=== PATIENT | female | born 1945 | race Caucasian/White ===

== ENCOUNTER 2016-07-24 18:43 | Emergency (ER) | payer MEDICARE, MEDICAID ==
[~2016-07-24] VITALS: Ht 149.9 cm; Wt 68.0 kg
[2016-07-24] MEDS ORDERED: MORPHINE SULFATE 4 MG/ML, 1ML ONE (19:16)
[2016-07-24] MEDS ORDERED: ONDANSETRON 2MG/ML, 2ML ONE (19:16)
[2016-07-24 19:29] LABS: BLOOD UREA NITROGEN 25 mg/dL (7-18)
[2016-07-24] MEDS ORDERED: MORPHINE SULFATE 4 MG/ML, 1ML IVPush PRN (19:30)
[2016-07-24] MEDS ORDERED: ONDANSETRON 2MG/ML, 2ML IVPush ONE (19:30)
[2016-07-24] MEDS ORDERED: SODIUM CHLORIDE FLUSH 10ML SYR IVF ONE (19:30)
[2016-07-24] MEDS ORDERED: SODIUM CHLORIDE 0.9% 1,000ML IV ONE (19:30)
[2016-07-24 20:21] LABS: PATH.CAST-FLAG NOT PRESENT; SPERM-FLAG NOT PRESENT; SRC-FLAG NOT PRESENT; XTAL-FLAG NOT PRESENT; YLC-FLAG NOT PRESENT
[2016-07-24 21:58] VITALS: BP 155/59
== END 2016-07-24 22:00 | disposition home or self-care (01) ==
LOC: ED 21:43
DX: M51.16 Intervertebral disc disorders with radiculopathy, lumbar region (principal); I10 Essential (primary) hypertension; E11.9 Type 2 diabetes mellitus without complications; E11.65 Type 2 diabetes mellitus with hyperglycemia
CPT/HCPCS: 36415; 72110; 80048; 81001; 82040; 82962; 85025; 96361; 96374; 96375; 99285; J2405; J7030

== ENCOUNTER 2017-01-01 20:31 | Emergency (ER) | payer MEDICARE, MEDICAID ==
[~2017-01-01] VITALS: Ht 147.3 cm; Wt 68.0 kg
[2017-01-01 20:34] VITALS: BP 160/81
[2017-01-01] MEDS ORDERED: HYDROcodone/APAP 5/325 TABLET PO ONE (21:00)
[2017-01-01] MEDS ORDERED: HYDROcodone/APAP 5/325 TABLET ONE (21:23)
[2017-01-01] MEDS ORDERED: ONDANSETRON ODT 4 MG ONE (21:27)
== END 2017-01-01 22:53 | disposition home or self-care (01) ==
LOC: ED 22:45
DX: M54.42 Lumbago with sciatica, left side (principal); E11.65 Type 2 diabetes mellitus with hyperglycemia; E78.00 Pure hypercholesterolemia, unspecified; I10 Essential (primary) hypertension
CPT/HCPCS: 72110; 99284

== ENCOUNTER 2019-07-29 15:08 | Inpatient (IN) | payer MEDICARE, MEDICAID ==
[~2019-07-29] VITALS: Ht 162.6 cm; Wt 65.7 kg
[2019-07-29] MEDS ORDERED: SODIUM CHLORIDE FLUSH 10ML SYR IVF ONE (16:00)
[2019-07-29] MEDS ORDERED: SODIUM CHLORIDE 0.9% 1,000ML IVBOLUS ONE (16:00)
[2019-07-29] MEDS ORDERED: ACETAMINOPHEN 325 MG TABLET ONE (16:16)
[2019-07-29 16:27] LABS: ALBUMIN 2.7 g/dL (3.4-5.0); ANION GAP 12 mmol/L (5-15); CALCIUM 8.2 mg/dL (8.5-10.1); CHLORIDE 101 mmol/L (98-107)
[2019-07-29] MEDS ORDERED: ACETAMINOPHEN 325 MG TABLET PO ONE (16:30)
[2019-07-29 16:33] LABS: ALANINE AMINOTRANSFERASE 16 U/L (12-78); ALKALINE PHOSPHATASE 49 U/L (45-117); BILIRUBIN,TOTAL 0.7 mg/dL (0.2-1.0); TOTAL PROTEIN 7.1 g/dL (6.4-8.2); TROPONIN I < 0.015 ng/mL (0.000-0.045)
--- NOTE | 2019-07-29 16:42 | NUR ---
URINE SAMPLE WALKED TO LAB
[2019-07-29 16:57] LABS: BASOPHILS % (AUTO) 0 % (0-1); EOSINOPHILS % (AUTO) 0 % (1-7); LYMPHOCYTES # (AUTO) 0.79 x10^3/uL (1-3.4); LYMPHOCYTES % (AUTO) 6 % (22-44); MD NO; MEAN CORPUSCULAR HGB CONC 33.9 g/dL (32.4-35.8); MEAN PLATELET VOLUME 8.1 fL (7.4-10.4); MONOCYTES # (AUTO) 0.04 x10^3/uL (0.2-0.8); MONOCYTES % (AUTO) 0 % (2-9); NEUTROPHILS # (AUTO) 12.34 x10^3/uL (1.8-6.8); NEUTROPHILS % (AUTO) 94 % (42-75); PLATELET COUNT 232 x10^3/uL (130-400); RED BLOOD COUNT 4.38 x10^6/uL (3.82-5.3); RED CELL DISTRIBUTION WIDTH 14.9 % (9.6-15.2)
[2019-07-29 17:05] LABS: MICROSCOPIC AUTO
[2019-07-29] MEDS ORDERED: ONDANSETRON 2MG/ML, 2ML ONE (18:01)
--- NOTE | 2019-07-29 18:08 | NUR ---
PT UNABLE TO WALK, STATES SHE STILL FEELS TOO DIZZY AND NAUSEOUS. NOTIFIED. PROB ADMIT.
[2019-07-29] MEDS ORDERED: CHLO25TA PO (18:39)
[2019-07-29] MEDS ORDERED: METF500T17 PO (18:39)
[2019-07-29] MEDS ORDERED: AMLO-150 PO (18:39)
[2019-07-29] MEDS ORDERED: ATOR40TA PO (18:39)
[2019-07-29] MEDS ORDERED: LISI40TA PO (18:39)
[2019-07-29] MEDS ORDERED: INSU100I13 SQ-INSULIN (18:42)
--- NOTE | 2019-07-29 18:48 | NUR ---
PT TO CT
--- NOTE | 2019-07-29 19:17 | NUR ---
Report received from VIRIDIANA Farrell. This RN to assume care. Awaiting CT results.
[2019-07-29] MEDS ORDERED: OMNIPAQUE 350 MG/ML, 75ML BOTTLE ONE (20:33)
--- NOTE | 2019-07-29 21:17 | NUR ---
Report given to VIRIDIANA Goldberg. Patient to be transferred to room 484-2. Patient is uzbek speaking only and patient's daughter wanted to stay overnight. Called refrigeration houseman and she stated patient's daughter could not stay. She was able, however, to go up with patient for admit process.
[2019-07-29 22:12] VITALS: BP 93/46
[2019-07-29] MEDS: ATORVASTATIN 40 MG TABLET PO SCH (22:37)
[2019-07-29] MEDS: INSULIN LISPRO 100 UNITS/ML, PEN SQ-INSULIN SCH (22:41)
[2019-07-30 02:00] VITALS: BP 109/60
[2019-07-30 06:53] LABS: MEAN CORPUSCULAR HEMOGLOBIN 29.5 pg (27.0-34.8); MEAN CORPUSCULAR HGB CONC 33.3 g/dL (32.4-35.8); MEAN PLATELET VOLUME 7.8 fL (7.4-10.4); PLATELET COUNT 227 x10^3/uL (130-400); RED BLOOD COUNT 4.44 x10^6/uL (3.82-5.3); RED CELL DISTRIBUTION WIDTH 14.8 % (9.6-15.2)
[2019-07-30] MEDS: INSULIN LISPRO 100 UNITS/ML, PEN SQ-INSULIN SCH ×4 (07:00→20:02)
[2019-07-30 07:03] LABS: ANION GAP 8 mmol/L (5-15); CALCIUM 8.3 mg/dL (8.5-10.1); CHLORIDE 107 mmol/L (98-107)
[2019-07-30 07:09] LABS: CREATININE 0.93 mg/dL (0.55-1.02); TROPONIN I < 0.015 ng/mL (0.000-0.045)
[2019-07-30 07:10] VITALS: BP 146/70
[2019-07-30 07:18] LABS: BASOPHILS # (AUTO) 0.03 x10^3/uL (0-0.1); BASOPHILS % (AUTO) 0 % (0-1); EOSINOPHILS % (AUTO) 0 % (1-7); LYMPHOCYTES # (AUTO) 1.01 x10^3/uL (1-3.4); LYMPHOCYTES % (AUTO) 11 % (22-44); MD SCAN; MONOCYTES # (AUTO) 0.32 x10^3/uL (0.2-0.8); MONOCYTES % (AUTO) 3 % (2-9); NEUTROPHILS % (AUTO) 86 % (42-75)
[2019-07-30] MEDS ORDERED: INSULIN GLARGINE 100 UNITS/ML, PEN SQ-INSULIN SCH (09:00)
[2019-07-30] MEDS: AMLODIPINE 5 MG TABLET PO SCH (09:17)
[2019-07-30] MEDS: LISINOPRIL 40 MG TABLET PO SCH (09:17)
[2019-07-30] MEDS: CHLORTHALIDONE 25 MG TABLET PO SCH (09:17)
[2019-07-30] MEDS: AZITHROMYCIN 500 MG TABLET PO SCH (09:57)
[2019-07-30] MEDS: CEFTRIAXONE PMX 1GM/50ML 50 ML IV SCH (09:57)
[2019-07-30] MEDS: ENOXAPARIN 40 MG/0.4 ML SQ SCH (11:24)
[2019-07-30 12:07] LABS: MICROSCOPIC AUTO
[2019-07-30 14:59] VITALS: BP 121/68
[2019-07-30 19:05] VITALS: BP 119/70
[2019-07-30] MEDS: ATORVASTATIN 40 MG TABLET PO SCH (20:02)
[2019-07-30] MEDS: ACETAMINOPHEN 325 MG TABLET PO PRN (20:02)
[2019-07-31] VITALS (9 sets, daily range): BP systolic 73–133; BP diastolic 36–74
[2019-07-31] MEDS ORDERED: SODIUM CHLORIDE 0.9% 1,000ML IVBOLUS ONE (02:30)
[2019-07-31] MEDS: ASPIRIN 81 MG TABLET EC PO SCH (05:41)
[2019-07-31 06:13] LABS: BASOPHILS # (AUTO) 0.03 x10^3/uL (0-0.1); BASOPHILS % (AUTO) 0 % (0-1); EOSINOPHILS # (AUTO) 0.08 x10^3/uL (0-0.4); EOSINOPHILS % (AUTO) 1 % (1-7); LYMPHOCYTES # (AUTO) 1.83 x10^3/uL (1-3.4); LYMPHOCYTES % (AUTO) 22 % (22-44); MD NO; MEAN CORPUSCULAR HEMOGLOBIN 29.1 pg (27.0-34.8); MEAN CORPUSCULAR HGB CONC 32.7 g/dL (32.4-35.8); MEAN PLATELET VOLUME 7.7 fL (7.4-10.4); MONOCYTES # (AUTO) 0.39 x10^3/uL (0.2-0.8); MONOCYTES % (AUTO) 5 % (2-9); NEUTROPHILS # (AUTO) 6.06 x10^3/uL (1.8-6.8); NEUTROPHILS % (AUTO) 72 % (42-75); PLATELET COUNT 228 x10^3/uL (130-400); RED BLOOD COUNT 4.18 x10^6/uL (3.82-5.3); RED CELL DISTRIBUTION WIDTH 15.4 % (9.6-15.2)
[2019-07-31 06:24] LABS: ANION GAP 8 mmol/L (5-15); CALCIUM 7.4 mg/dL (8.5-10.1); CHLORIDE 108 mmol/L (98-107)
[2019-07-31 06:28] LABS: ALANINE AMINOTRANSFERASE 17 U/L (12-78); ALKALINE PHOSPHATASE 50 U/L (45-117); BILIRUBIN,TOTAL 0.7 mg/dL (0.2-1.0); TOTAL PROTEIN 6.2 g/dL (6.4-8.2)
[2019-07-31] MEDS: INSULIN LISPRO 100 UNITS/ML, PEN SQ-INSULIN SCH ×4 (07:00→21:00)
[2019-07-31] MEDS: AZITHROMYCIN 500 MG TABLET PO SCH (08:44)
[2019-07-31] MEDS: AMLODIPINE 5 MG TABLET PO SCH (08:44)
[2019-07-31] MEDS: LISINOPRIL 40 MG TABLET PO SCH (08:45)
[2019-07-31] MEDS: CHLORTHALIDONE 25 MG TABLET PO SCH (08:45)
[2019-07-31] MEDS: CEFTRIAXONE PMX 1GM/50ML 50 ML IV SCH (08:50)
[2019-07-31] MEDS ORDERED: INSULIN GLARGINE 100 UNITS/ML, PEN SQ-INSULIN SCH (09:00)
[2019-07-31] MEDS: ENOXAPARIN 40 MG/0.4 ML SQ SCH (11:19)
[2019-07-31] MEDS: ACETAMINOPHEN 325 MG TABLET PO PRN ×2 (12:23→21:46)
[2019-07-31] MEDS: ONDANSETRON 2MG/ML, 2ML IVPush PRN (14:24)
[2019-07-31] MEDS: ATORVASTATIN 40 MG TABLET PO SCH (21:45)
[2019-08-01] VITALS: BP 114/65
[2019-08-01 00:42] LABS: CLOSTRIDIUM DIFFICILE ANTIGEN NEGATIVE; CLOSTRIDIUM DIFFICILE TOXIN NEGATIVE (Negative)
[2019-08-01] MEDS: ASPIRIN 81 MG TABLET EC PO SCH (05:22)
[2019-08-01 05:35] LABS: BASOPHILS # (AUTO) 0.04 x10^3/uL (0-0.1); BASOPHILS % (AUTO) 0 % (0-1); EOSINOPHILS # (AUTO) 0.17 x10^3/uL (0-0.4); EOSINOPHILS % (AUTO) 2 % (1-7); LYMPHOCYTES % (AUTO) 16 % (22-44); MD NO; MEAN CORPUSCULAR HEMOGLOBIN 29.7 pg (27.0-34.8); MEAN CORPUSCULAR HGB CONC 33.3 g/dL (32.4-35.8); MEAN PLATELET VOLUME 7.2 fL (7.4-10.4); MONOCYTES # (AUTO) 0.41 x10^3/uL (0.2-0.8); MONOCYTES % (AUTO) 4 % (2-9); NEUTROPHILS % (AUTO) 79 % (42-75); PLATELET COUNT 244 x10^3/uL (130-400); RED BLOOD COUNT 4.27 x10^6/uL (3.82-5.3); RED CELL DISTRIBUTION WIDTH 15.1 % (9.6-15.2)
[2019-08-01 05:48] LABS: ALBUMIN 1.9 g/dL (3.4-5.0); ANION GAP 8 mmol/L (5-15); CALCIUM 7.3 mg/dL (8.5-10.1); CHLORIDE 105 mmol/L (98-107)
[2019-08-01 05:54] LABS: ALANINE AMINOTRANSFERASE 16 U/L (12-78); ALKALINE PHOSPHATASE 59 U/L (45-117); BILIRUBIN,TOTAL 0.7 mg/dL (0.2-1.0); CREATININE 1.21 mg/dL (0.55-1.02); TOTAL PROTEIN 6.4 g/dL (6.4-8.2)
[2019-08-01 06:35] VITALS: BP 116/68
[2019-08-01] MEDS ORDERED: MEDROL 4MG DOSEPAK PO SCH (07:30)
[2019-08-01] MEDS ORDERED: INSULIN GLARGINE 100 UNITS/ML, PEN SQ-INSULIN SCH (09:00)
[2019-08-01 09:12] LABS: TROPONIN I < 0.015 ng/mL (0.000-0.045)
[2019-08-01 09:47] LABS: C-REACTIVE PROTEIN, QUANT > 19.00 mg/dL (0.02-0.49)
[2019-08-01] MEDS: ENOXAPARIN 40 MG/0.4 ML SQ SCH (09:54)
[2019-08-01] MEDS: LISINOPRIL 40 MG TABLET PO SCH (09:56)
[2019-08-01] MEDS: LACTOBACILLUS CHEW TABLET PO SCH ×3 (09:57→20:51)
[2019-08-01] MEDS: CHLORTHALIDONE 25 MG TABLET PO SCH (09:57)
[2019-08-01] MEDS ORDERED: ENOXAPARIN 30 MG/0.3 ML SQ SCH (11:30)
[2019-08-01] MEDS: INSULIN LISPRO 100 UNITS/ML, PEN SQ-INSULIN SCH ×3 (11:42→20:54)
[2019-08-01] MEDS: CEFTRIAXONE PMX 1GM/50ML 50 ML IV SCH (11:43)
[2019-08-01 12:38] VITALS: BP 112/69
[2019-08-01] MEDS: ACETAMINOPHEN 325 MG TABLET PO PRN (14:26)
[2019-08-01] MEDS: CARVEDILOL 6.25 MG TABLET PO SCH (17:34)
[2019-08-01 18:36] VITALS: BP 91/59
[2019-08-01] MEDS: ATORVASTATIN 40 MG TABLET PO SCH (20:51)
[2019-08-02] VITALS (7 sets, daily range): BP systolic 90–133; BP diastolic 50–69
[2019-08-02] MEDS: ASPIRIN 81 MG TABLET EC PO SCH (05:10)
[2019-08-02] MEDS: CARVEDILOL 6.25 MG TABLET PO SCH ×2 (05:11→17:46)
[2019-08-02 06:39] LABS: ALANINE AMINOTRANSFERASE 16 U/L (12-78); ALBUMIN 1.9 g/dL (3.4-5.0); ANION GAP 10 mmol/L (5-15); CALCIUM 7.4 mg/dL (8.5-10.1); CHLORIDE 101 mmol/L (98-107); CREATININE 1.24 mg/dL (0.55-1.02)
[2019-08-02 06:44] LABS: ALKALINE PHOSPHATASE 57 U/L (45-117); BILIRUBIN,TOTAL 0.7 mg/dL (0.2-1.0); TOTAL PROTEIN 6.5 g/dL (6.4-8.2)
[2019-08-02] MEDS: INSULIN LISPRO 100 UNITS/ML, PEN SQ-INSULIN SCH ×4 (08:25→20:23)
[2019-08-02] MEDS: LACTOBACILLUS CHEW TABLET PO SCH ×3 (08:54→20:22)
[2019-08-02] MEDS: SODIUM CHLORIDE 0.9% 1,000 ML IV SCH ×2 (08:54→23:58)
[2019-08-02] MEDS: LISINOPRIL 40 MG TABLET PO SCH (08:54)
[2019-08-02] MEDS: CEFTRIAXONE PMX 1GM/50ML 50 ML IV SCH (08:55)
[2019-08-02] MEDS ORDERED: INSULIN GLARGINE 100 UNITS/ML, PEN SQ-INSULIN SCH (09:00)
[2019-08-02] MEDS: ENOXAPARIN 40 MG/0.4 ML SQ SCH (12:15)
[2019-08-02] MEDS ORDERED: REMDESIVIR 200 MG in SODIUM CHLORIDE 0.9% 250 ML IVPB ONE (17:00)
[2019-08-02] MEDS: ACETAMINOPHEN 325 MG TABLET PO PRN (20:22)
[2019-08-02] MEDS: ATORVASTATIN 40 MG TABLET PO SCH (20:23)
[2019-08-03 02:17] VITALS: BP 106/62
[2019-08-03 05:13] LABS: MEAN CORPUSCULAR HEMOGLOBIN 29.1 pg (27.0-34.8); MEAN CORPUSCULAR HGB CONC 33.1 g/dL (32.4-35.8); MEAN PLATELET VOLUME 7.7 fL (7.4-10.4); PLATELET COUNT 307 x10^3/uL (130-400); RED BLOOD COUNT 3.72 x10^6/uL (3.82-5.3); RED CELL DISTRIBUTION WIDTH 15.5 % (9.6-15.2)
[2019-08-03 05:17] LABS: ANION GAP 11 mmol/L (5-15); CALCIUM 7.1 mg/dL (8.5-10.1); CHLORIDE 103 mmol/L (98-107)
[2019-08-03 05:50] LABS: BASOPHILS # (AUTO) 0.01 x10^3/uL (0-0.1); BASOPHILS % (AUTO) 0 % (0-1); EOSINOPHILS % (AUTO) 0 % (1-7); LYMPHOCYTES # (AUTO) 0.39 x10^3/uL (1-3.4); LYMPHOCYTES % (AUTO) 4 % (22-44); MD SCAN; MONOCYTES # (AUTO) 0.53 x10^3/uL (0.2-0.8); MONOCYTES % (AUTO) 6 % (2-9); NEUTROPHILS # (AUTO) 8.28 x10^3/uL (1.8-6.8); NEUTROPHILS % (AUTO) 90 % (42-75)
[2019-08-03 06:01] VITALS: BP 124/64
[2019-08-03] MEDS: CARVEDILOL 6.25 MG TABLET PO SCH ×2 (06:03→17:38)
[2019-08-03] MEDS: ASPIRIN 81 MG TABLET EC PO SCH (06:03)
[2019-08-03 06:41] VITALS: BP 116/65
[2019-08-03] MEDS ORDERED: SODIUM CHLORIDE 0.9% 1,000 ML IV SCH (07:30)
[2019-08-03] MEDS: CEFTRIAXONE PMX 1GM/50ML 50 ML IV SCH (09:46)
[2019-08-03] MEDS: LISINOPRIL 40 MG TABLET PO SCH (09:46)
[2019-08-03] MEDS: LACTOBACILLUS CHEW TABLET PO SCH ×3 (09:46→21:21)
[2019-08-03] MEDS: CALCIUM/VITAMIN D3 250-125 TABLET PO SCH ×2 (09:46→21:21)
[2019-08-03] MEDS: INSULIN LISPRO 100 UNITS/ML, PEN SQ-INSULIN SCH ×4 (09:46→21:00)
[2019-08-03] MEDS: INSULIN GLARGINE 100 UNITS/ML, PEN SQ-INSULIN SCH (09:47)
[2019-08-03] MEDS: ENOXAPARIN 40 MG/0.4 ML SQ SCH (11:04)
[2019-08-03 11:36] VITALS: BP 121/61
[2019-08-03] MEDS: BENZONATATE 100 MG CAPSULE PO SCH ×2 (16:10→21:21)
[2019-08-03] MEDS: REMDESIVIR 100 MG in SODIUM CHLORIDE 0.9% 250 ML IVPB SCH (18:28)
[2019-08-03 19:14] VITALS: BP 115/43
[2019-08-03] MEDS: ATORVASTATIN 40 MG TABLET PO SCH (21:21)
[2019-08-04 02:34] VITALS: BP 141/57
[2019-08-04 04:52] LABS: BASOPHILS % (AUTO) 0 % (0-1); EOSINOPHILS # (AUTO) 0.12 x10^3/uL (0-0.4); EOSINOPHILS % (AUTO) 1 % (1-7); LYMPHOCYTES # (AUTO) 0.48 x10^3/uL (1-3.4); LYMPHOCYTES % (AUTO) 4 % (22-44); MD NO; MEAN CORPUSCULAR HEMOGLOBIN 28.9 pg (27.0-34.8); MEAN CORPUSCULAR HGB CONC 32.7 g/dL (32.4-35.8); MEAN PLATELET VOLUME 7.4 fL (7.4-10.4); MONOCYTES # (AUTO) 0.71 x10^3/uL (0.2-0.8); MONOCYTES % (AUTO) 6 % (2-9); NEUTROPHILS # (AUTO) 10.34 x10^3/uL (1.8-6.8); NEUTROPHILS % (AUTO) 89 % (42-75); PLATELET COUNT 356 x10^3/uL (130-400); RED BLOOD COUNT 3.85 x10^6/uL (3.82-5.3); RED CELL DISTRIBUTION WIDTH 15.1 % (9.6-15.2)
[2019-08-04 05:02] LABS: ALANINE AMINOTRANSFERASE 18 U/L (12-78); ALBUMIN 1.8 g/dL (3.4-5.0); ANION GAP 7 mmol/L (5-15); CALCIUM 7.3 mg/dL (8.5-10.1); CHLORIDE 106 mmol/L (98-107)
[2019-08-04 05:05] LABS: ALKALINE PHOSPHATASE 52 U/L (45-117); BILIRUBIN,TOTAL 0.4 mg/dL (0.2-1.0); CREATININE 0.81 mg/dL (0.55-1.02); TOTAL PROTEIN 6.6 g/dL (6.4-8.2)
[2019-08-04] MEDS: INSULIN LISPRO 100 UNITS/ML, PEN SQ-INSULIN SCH ×4 (07:00→21:10)
[2019-08-04] MEDS ORDERED: SODIUM CHLORIDE 0.9% 1,000 ML IV SCH (07:30)
[2019-08-04] MEDS ORDERED: MORPHINE SULFATE 4 MG/ML, 1ML IVPush PRN (08:30)
[2019-08-04] MEDS: INSULIN GLARGINE 100 UNITS/ML, PEN SQ-INSULIN SCH (08:42)
[2019-08-04] MEDS: CEFTRIAXONE PMX 1GM/50ML 50 ML IV SCH (08:46)
[2019-08-04] MEDS: BENZONATATE 100 MG CAPSULE PO SCH ×3 (08:46→21:09)
[2019-08-04] MEDS: CARVEDILOL 6.25 MG TABLET PO SCH ×2 (08:47→17:46)
[2019-08-04] MEDS: LACTOBACILLUS CHEW TABLET PO SCH ×3 (08:47→21:09)
[2019-08-04] MEDS: ASPIRIN 81 MG TABLET EC PO SCH (08:47)
[2019-08-04] MEDS: CALCIUM/VITAMIN D3 250-125 TABLET PO SCH ×2 (08:47→21:09)
[2019-08-04] MEDS: LISINOPRIL 40 MG TABLET PO SCH (08:47)
[2019-08-04 09:09] VITALS: BP 156/62
[2019-08-04 10:23] VITALS: BP 132/67
[2019-08-04] MEDS: ENOXAPARIN 40 MG/0.4 ML SQ SCH (11:13)
[2019-08-04 12:02] VITALS: BP 131/80
[2019-08-04 12:24] VITALS: BP 141/73
[2019-08-04] MEDS ORDERED: FUROSEMIDE 20 MG/2 ML IV ONE (13:00)
[2019-08-04] MEDS: methylPREDNISolone SOD SUCC 40 MG/ML IV SCH (13:16)
[2019-08-04] MEDS: ASCORBATE SODIUM 3,000 MG in SODIUM CHLORIDE 0.9% 250 ML IVPB SCH ×2 (15:48→21:11)
[2019-08-04] MEDS: FUROSEMIDE 20 MG/2 ML IV SCH (17:47)
[2019-08-04] MEDS: REMDESIVIR 100 MG in SODIUM CHLORIDE 0.9% 250 ML IVPB SCH (17:53)
[2019-08-04] MEDS: DOXYCYCLINE 100MG TABLET PO SCH (21:09)
[2019-08-04] MEDS: MELATONIN 5 MG TABLET PO SCH (21:09)
[2019-08-04] MEDS: ATORVASTATIN 40 MG TABLET PO SCH (21:09)
[2019-08-04] MEDS: ENOXAPARIN 60 MG/0.6 ML SQ SCH (21:46)
[2019-08-05] MEDS: methylPREDNISolone SOD SUCC 40 MG/ML IV SCH ×2 (01:24→12:51)
[2019-08-05] MEDS: ASCORBATE SODIUM 3,000 MG in SODIUM CHLORIDE 0.9% 250 ML IVPB SCH ×4 (04:09→22:54)
[2019-08-05 04:43] LABS: MEAN CORPUSCULAR HGB CONC 32.6 g/dL (32.4-35.8); MEAN PLATELET VOLUME 7.3 fL (7.4-10.4); PLATELET COUNT 388 x10^3/uL (130-400); RED BLOOD COUNT 3.78 x10^6/uL (3.82-5.3); RED CELL DISTRIBUTION WIDTH 15.3 % (9.6-15.2)
[2019-08-05 04:51] LABS: ALBUMIN 1.6 g/dL (3.4-5.0); ANION GAP 8 mmol/L (5-15); CALCIUM 7.6 mg/dL (8.5-10.1); CHLORIDE 107 mmol/L (98-107)
[2019-08-05 04:58] LABS: ALANINE AMINOTRANSFERASE 39 U/L (12-78); ALKALINE PHOSPHATASE 53 U/L (45-117); BILIRUBIN,TOTAL 0.5 mg/dL (0.2-1.0); CREATININE 1.02 mg/dL (0.55-1.02); TOTAL PROTEIN 6.3 g/dL (6.4-8.2)
[2019-08-05 05:21] LABS: BASOPHILS % (AUTO) 0 % (0-1); EOSINOPHILS # (AUTO) 0.07 x10^3/uL (0-0.4); EOSINOPHILS % (AUTO) 1 % (1-7); LYMPHOCYTES % (AUTO) 3 % (22-44); MD SCAN; MONOCYTES # (AUTO) 0.54 x10^3/uL (0.2-0.8); MONOCYTES % (AUTO) 6 % (2-9); NEUTROPHILS # (AUTO) 8.07 x10^3/uL (1.8-6.8); NEUTROPHILS % (AUTO) 90 % (42-75)
[2019-08-05] MEDS: ASPIRIN 81 MG TABLET EC PO SCH (05:57)
[2019-08-05] MEDS: CARVEDILOL 6.25 MG TABLET PO SCH ×2 (06:00→17:55)
[2019-08-05] MEDS: CALCIUM/VITAMIN D3 250-125 TABLET PO SCH ×2 (08:21→21:32)
[2019-08-05] MEDS: FUROSEMIDE 20 MG/2 ML IV SCH ×3 (08:21→21:37)
[2019-08-05] MEDS: LISINOPRIL 40 MG TABLET PO SCH (08:21)
[2019-08-05] MEDS: BENZONATATE 100 MG CAPSULE PO SCH ×3 (08:21→21:32)
[2019-08-05] MEDS: DOXYCYCLINE 100MG TABLET PO SCH ×2 (08:22→21:32)
[2019-08-05] MEDS: LACTOBACILLUS CHEW TABLET PO SCH ×3 (08:22→21:35)
[2019-08-05] MEDS: ZINC SULFATE 220 MG CAPSULE PO SCH (08:22)
[2019-08-05] MEDS: INSULIN LISPRO 100 UNITS/ML, PEN SQ-INSULIN SCH ×4 (08:23→21:33)
[2019-08-05] MEDS: CEFTRIAXONE PMX 1GM/50ML 50 ML IV SCH (08:23)
[2019-08-05] MEDS: INSULIN GLARGINE 100 UNITS/ML, PEN SQ-INSULIN SCH (09:26)
[2019-08-05] MEDS: ENOXAPARIN 60 MG/0.6 ML SQ SCH ×2 (09:26→21:38)
[2019-08-05] MEDS ORDERED: POTASSIUM CHLORIDE 20 MEQ TAB.ER.PRT PO ONE (18:00)
[2019-08-05] MEDS ORDERED: POTASSIUM CHLORIDE 10% 40 MEQ/30 ML UDC ONE (18:20)
[2019-08-05] MEDS: REMDESIVIR 100 MG in SODIUM CHLORIDE 0.9% 250 ML IVPB SCH (18:28)
[2019-08-05] MEDS: MELATONIN 5 MG TABLET PO SCH (21:32)
[2019-08-05] MEDS: ATORVASTATIN 40 MG TABLET PO SCH (21:32)
[2019-08-06] MEDS: methylPREDNISolone SOD SUCC 40 MG/ML IV SCH ×2 (00:50→13:30)
[2019-08-06] MEDS: ASCORBATE SODIUM 3,000 MG in SODIUM CHLORIDE 0.9% 250 ML IVPB SCH ×4 (04:10→22:34)
[2019-08-06 05:33] LABS: ALBUMIN 1.6 g/dL (3.4-5.0); ANION GAP 11 mmol/L (5-15); CALCIUM 7.7 mg/dL (8.5-10.1); CHLORIDE 107 mmol/L (98-107)
[2019-08-06 05:39] LABS: ALANINE AMINOTRANSFERASE 33 U/L (12-78); ALKALINE PHOSPHATASE 46 U/L (45-117); BILIRUBIN,TOTAL 0.4 mg/dL (0.2-1.0); CREATININE 1.08 mg/dL (0.55-1.02); TOTAL PROTEIN 5.8 g/dL (6.4-8.2)
[2019-08-06] MEDS: ASPIRIN 81 MG TABLET EC PO SCH (05:55)
[2019-08-06] MEDS: CARVEDILOL 6.25 MG TABLET PO SCH ×2 (05:55→16:35)
[2019-08-06] MEDS: FUROSEMIDE 20 MG/2 ML IV SCH ×3 (05:55→21:05)
[2019-08-06] MEDS: INSULIN LISPRO 100 UNITS/ML, PEN SQ-INSULIN SCH ×4 (09:17→21:22)
[2019-08-06] MEDS: INSULIN GLARGINE 100 UNITS/ML, PEN SQ-INSULIN SCH (09:18)
[2019-08-06] MEDS: CALCIUM/VITAMIN D3 250-125 TABLET PO SCH ×2 (09:19→21:04)
[2019-08-06] MEDS: LISINOPRIL 40 MG TABLET PO SCH (09:20)
[2019-08-06] MEDS: ENOXAPARIN 60 MG/0.6 ML SQ SCH ×2 (09:20→21:05)
[2019-08-06] MEDS: ZINC SULFATE 220 MG CAPSULE PO SCH (09:20)
[2019-08-06] MEDS: BENZONATATE 100 MG CAPSULE PO SCH ×3 (09:20→21:05)
[2019-08-06] MEDS: LACTOBACILLUS CHEW TABLET PO SCH ×3 (09:20→21:04)
[2019-08-06] MEDS: CEFTRIAXONE PMX 1GM/50ML 50 ML IV SCH (09:32)
[2019-08-06] MEDS: DOXYCYCLINE 100MG TABLET PO SCH ×2 (09:32→21:04)
[2019-08-06] MEDS: REMDESIVIR 100 MG in SODIUM CHLORIDE 0.9% 250 ML IVPB SCH (21:04)
[2019-08-06] MEDS: MELATONIN 5 MG TABLET PO SCH (21:05)
[2019-08-06] MEDS: ATORVASTATIN 40 MG TABLET PO SCH (21:05)
[2019-08-07] MEDS: methylPREDNISolone SOD SUCC 40 MG/ML IV SCH ×2 (00:38→12:37)
[2019-08-07] MEDS: ASCORBATE SODIUM 3,000 MG in SODIUM CHLORIDE 0.9% 250 ML IVPB SCH ×4 (04:20→22:13)
[2019-08-07] MEDS: CARVEDILOL 6.25 MG TABLET PO SCH ×2 (06:00→18:00)
[2019-08-07] MEDS: ASPIRIN 81 MG TABLET EC PO SCH (06:03)
[2019-08-07] MEDS: FUROSEMIDE 20 MG/2 ML IV SCH ×3 (06:03→22:13)
[2019-08-07] MEDS: INSULIN LISPRO 100 UNITS/ML, PEN SQ-INSULIN SCH ×4 (07:36→22:33)
[2019-08-07] MEDS: LACTOBACILLUS CHEW TABLET PO SCH ×3 (08:32→22:13)
[2019-08-07] MEDS: BENZONATATE 100 MG CAPSULE PO SCH ×3 (08:32→22:13)
[2019-08-07] MEDS: LISINOPRIL 40 MG TABLET PO SCH (08:32)
[2019-08-07] MEDS: CALCIUM/VITAMIN D3 250-125 TABLET PO SCH ×2 (08:32→22:13)
[2019-08-07] MEDS: DOXYCYCLINE 100MG TABLET PO SCH ×2 (08:32→22:13)
[2019-08-07] MEDS: metFORMIN 500 MG TABLET PO SCH ×2 (08:32→22:13)
[2019-08-07] MEDS: ZINC SULFATE 220 MG CAPSULE PO SCH (08:32)
[2019-08-07] MEDS: INSULIN GLARGINE 100 UNITS/ML, PEN SQ-INSULIN SCH (08:33)
[2019-08-07] MEDS: CEFTRIAXONE PMX 1GM/50ML 50 ML IV SCH (10:08)
[2019-08-07] MEDS: ENOXAPARIN 60 MG/0.6 ML SQ SCH ×2 (10:08→22:13)
[2019-08-07 11:50] LABS: ANION GAP 12 mmol/L (5-15); CALCIUM 7.5 mg/dL (8.5-10.1); CHLORIDE 105 mmol/L (98-107)
[2019-08-07] MEDS: MELATONIN 5 MG TABLET PO SCH (22:13)
[2019-08-07] MEDS: ATORVASTATIN 40 MG TABLET PO SCH (22:13)
[2019-08-07] MEDS: hydrALAzine 20 MG/ML, 1ML IVPush PRN (22:26)
[2019-08-08] MEDS: methylPREDNISolone SOD SUCC 40 MG/ML IV SCH ×2 (00:47→12:56)
[2019-08-08] MEDS: ASCORBATE SODIUM 3,000 MG in SODIUM CHLORIDE 0.9% 250 ML IVPB SCH ×4 (04:25→22:37)
[2019-08-08 05:01] LABS: MEAN CORPUSCULAR HEMOGLOBIN 28.9 pg (27.0-34.8); MEAN CORPUSCULAR HGB CONC 32.3 g/dL (32.4-35.8); MEAN PLATELET VOLUME 7.5 fL (7.4-10.4); PLATELET COUNT 545 x10^3/uL (130-400); RED BLOOD COUNT 3.88 x10^6/uL (3.82-5.3); RED CELL DISTRIBUTION WIDTH 15.3 % (9.6-15.2)
[2019-08-08 05:06] LABS: ANION GAP 12 mmol/L (5-15); CALCIUM 8.1 mg/dL (8.5-10.1); CHLORIDE 104 mmol/L (98-107); CREATININE 0.96 mg/dL (0.55-1.02)
[2019-08-08] MEDS: CARVEDILOL 6.25 MG TABLET PO SCH (06:00)
[2019-08-08] MEDS: ASPIRIN 81 MG TABLET EC PO SCH (06:12)
[2019-08-08] MEDS: FUROSEMIDE 20 MG/2 ML IV SCH ×3 (06:12→22:36)
[2019-08-08 06:17] LABS: BASOPHILS % (AUTO) 0 % (0-1); EOSINOPHILS % (AUTO) 0 % (1-7); LYMPHOCYTES # (AUTO) 0.83 x10^3/uL (1-3.4); LYMPHOCYTES % (AUTO) 6 % (22-44); MD SCAN; MONOCYTES # (AUTO) 1.27 x10^3/uL (0.2-0.8); MONOCYTES % (AUTO) 9 % (2-9); NEUTROPHILS # (AUTO) 11.97 x10^3/uL (1.8-6.8); NEUTROPHILS % (AUTO) 85 % (42-75)
[2019-08-08] MEDS ORDERED: MAGNESIUM SULFATE PMX 2GM/50ML 50 ML IV ONE (07:30)
[2019-08-08] MEDS: INSULIN LISPRO 100 UNITS/ML, PEN SQ-INSULIN SCH ×4 (07:50→22:41)
[2019-08-08] MEDS: LACTOBACILLUS CHEW TABLET PO SCH ×3 (08:55→22:39)
[2019-08-08] MEDS: ZINC SULFATE 220 MG CAPSULE PO SCH (08:55)
[2019-08-08] MEDS: POTASSIUM CHLORIDE 20 MEQ TAB.ER.PRT PO SCH ×2 (08:56→17:26)
[2019-08-08] MEDS: LISINOPRIL 40 MG TABLET PO SCH (08:56)
[2019-08-08] MEDS: metFORMIN 500 MG TABLET PO SCH ×2 (08:56→22:39)
[2019-08-08] MEDS: DOXYCYCLINE 100MG TABLET PO SCH ×2 (08:56→22:39)
[2019-08-08] MEDS: CALCIUM/VITAMIN D3 250-125 TABLET PO SCH ×2 (08:56→22:40)
[2019-08-08] MEDS: BENZONATATE 100 MG CAPSULE PO SCH ×3 (08:56→22:40)
[2019-08-08] MEDS ORDERED: INSULIN GLARGINE 100 UNITS/ML, PEN SQ-INSULIN SCH (09:00)
[2019-08-08] MEDS: ENOXAPARIN 60 MG/0.6 ML SQ SCH ×2 (10:27→22:37)
[2019-08-08] MEDS: CEFTRIAXONE PMX 1GM/50ML 50 ML IV SCH (10:30)
[2019-08-08] MEDS: hydrALAzine 20 MG/ML, 1ML IVPush PRN (22:37)
[2019-08-08] MEDS: MELATONIN 5 MG TABLET PO SCH (22:40)
[2019-08-08] MEDS: ATORVASTATIN 40 MG TABLET PO SCH (22:40)
[2019-08-09] MEDS: methylPREDNISolone SOD SUCC 40 MG/ML IV SCH (01:21)
[2019-08-09 04:45] LABS: MEAN CORPUSCULAR HEMOGLOBIN 29.2 pg (27.0-34.8); MEAN CORPUSCULAR HGB CONC 32.6 g/dL (32.4-35.8); MEAN PLATELET VOLUME 7.8 fL (7.4-10.4); PLATELET COUNT 565 x10^3/uL (130-400); RED BLOOD COUNT 4.21 x10^6/uL (3.82-5.3); RED CELL DISTRIBUTION WIDTH 15.5 % (9.6-15.2)
[2019-08-09 05:00] LABS: ALBUMIN 1.8 g/dL (3.4-5.0); ANION GAP 12 mmol/L (5-15); CALCIUM 8.5 mg/dL (8.5-10.1); CHLORIDE 106 mmol/L (98-107)
[2019-08-09 05:05] LABS: ALANINE AMINOTRANSFERASE 26 U/L (12-78); ALKALINE PHOSPHATASE 65 U/L (45-117); BILIRUBIN,TOTAL 0.4 mg/dL (0.2-1.0); CREATININE 0.93 mg/dL (0.55-1.02); TOTAL PROTEIN 6.2 g/dL (6.4-8.2)
[2019-08-09 05:14] LABS: BASOPHILS # (AUTO) 0.05 x10^3/uL (0-0.1); BASOPHILS % (AUTO) 0 % (0-1); EOSINOPHILS % (AUTO) 0 % (1-7); LYMPHOCYTES # (AUTO) 0.42 x10^3/uL (1-3.4); LYMPHOCYTES % (AUTO) 3 % (22-44); MD SCAN; MONOCYTES # (AUTO) 0.64 x10^3/uL (0.2-0.8); MONOCYTES % (AUTO) 5 % (2-9); NEUTROPHILS # (AUTO) 11.89 x10^3/uL (1.8-6.8); NEUTROPHILS % (AUTO) 91 % (42-75)
[2019-08-09] MEDS: ASCORBATE SODIUM 3,000 MG in SODIUM CHLORIDE 0.9% 250 ML IVPB SCH (06:05)
[2019-08-09] MEDS: FUROSEMIDE 20 MG/2 ML IV SCH ×2 (06:06→21:11)
[2019-08-09] MEDS: ASPIRIN 81 MG TABLET EC PO SCH (06:06)
[2019-08-09] MEDS: INSULIN LISPRO 100 UNITS/ML, PEN SQ-INSULIN SCH ×4 (06:07→21:08)
[2019-08-09] MEDS ORDERED: INSULIN GLARGINE 100 UNITS/ML, PEN SQ-INSULIN SCH (09:00)
[2019-08-09] MEDS: CALCIUM/VITAMIN D3 250-125 TABLET PO SCH ×2 (09:17→21:12)
[2019-08-09] MEDS: DOXYCYCLINE 100MG TABLET PO SCH (09:17)
[2019-08-09] MEDS: BENZONATATE 100 MG CAPSULE PO SCH ×3 (09:17→21:12)
[2019-08-09] MEDS: LACTOBACILLUS CHEW TABLET PO SCH ×3 (09:17→21:11)
[2019-08-09] MEDS: LISINOPRIL 40 MG TABLET PO SCH (09:18)
[2019-08-09] MEDS: ENOXAPARIN 60 MG/0.6 ML SQ SCH ×2 (09:18→21:11)
[2019-08-09] MEDS: metFORMIN 500 MG TABLET PO SCH ×2 (09:18→21:00)
[2019-08-09] MEDS: ZINC SULFATE 220 MG CAPSULE PO SCH (09:18)
[2019-08-09] MEDS: CEFTRIAXONE PMX 1GM/50ML 50 ML IV SCH (09:18)
[2019-08-09] MEDS: hydrALAzine 20 MG/ML, 1ML IVPush PRN (16:38)
[2019-08-09 21:10] VITALS: BP 176/67
[2019-08-09] MEDS: ATORVASTATIN 40 MG TABLET PO SCH (21:11)
[2019-08-09] MEDS: MELATONIN 5 MG TABLET PO SCH (21:11)
[2019-08-10 02:45] VITALS: BP 135/58
[2019-08-10] MEDS: ASPIRIN 81 MG TABLET EC PO SCH (05:45)
[2019-08-10] MEDS: INSULIN LISPRO 100 UNITS/ML, PEN SQ-INSULIN SCH ×4 (07:00→21:40)
[2019-08-10 08:00] VITALS: BP 189/63
[2019-08-10] MEDS ORDERED: methylPREDNISolone SOD SUCC 40 MG/ML IV SCH (09:00)
[2019-08-10] MEDS: LISINOPRIL 40 MG TABLET PO SCH (09:24)
[2019-08-10] MEDS: LACTOBACILLUS CHEW TABLET PO SCH ×3 (09:24→21:35)
[2019-08-10] MEDS: BENZONATATE 100 MG CAPSULE PO SCH ×3 (09:24→21:35)
[2019-08-10] MEDS: metFORMIN 500 MG TABLET PO SCH ×2 (09:24→21:35)
[2019-08-10] MEDS: CALCIUM/VITAMIN D3 250-125 TABLET PO SCH ×2 (09:24→21:35)
[2019-08-10] MEDS: FUROSEMIDE 20 MG/2 ML IV SCH ×2 (09:25→21:35)
[2019-08-10] MEDS: ENOXAPARIN 60 MG/0.6 ML SQ SCH ×2 (09:25→21:35)
[2019-08-10 13:00] VITALS: BP 141/63
[2019-08-10 20:00] VITALS: BP 131/61
[2019-08-10] MEDS: ATORVASTATIN 40 MG TABLET PO SCH (21:35)
[2019-08-10] MEDS: MELATONIN 5 MG TABLET PO SCH (21:35)
[2019-08-11 02:00] VITALS: BP 109/63
[2019-08-11 04:58] LABS: BASOPHILS # (AUTO) 0.15 x10^3/uL (0-0.1); BASOPHILS % (AUTO) 1 % (0-1); EOSINOPHILS # (AUTO) 0.01 x10^3/uL (0-0.4); EOSINOPHILS % (AUTO) 0 % (1-7); LYMPHOCYTES # (AUTO) 1.02 x10^3/uL (1-3.4); LYMPHOCYTES % (AUTO) 6 % (22-44); MD NO; MEAN CORPUSCULAR HEMOGLOBIN 28.8 pg (27.0-34.8); MEAN CORPUSCULAR HGB CONC 32.2 g/dL (32.4-35.8); MEAN PLATELET VOLUME 7.7 fL (7.4-10.4); MONOCYTES # (AUTO) 0.69 x10^3/uL (0.2-0.8); MONOCYTES % (AUTO) 4 % (2-9); NEUTROPHILS # (AUTO) 14.91 x10^3/uL (1.8-6.8); NEUTROPHILS % (AUTO) 89 % (42-75); PLATELET COUNT 446 x10^3/uL (130-400); RED BLOOD COUNT 3.74 x10^6/uL (3.82-5.3); RED CELL DISTRIBUTION WIDTH 15.5 % (9.6-15.2)
[2019-08-11 05:05] LABS: ANION GAP 5 mmol/L (5-15); CALCIUM 8.1 mg/dL (8.5-10.1); CHLORIDE 103 mmol/L (98-107); CREATININE 0.79 mg/dL (0.55-1.02)
[2019-08-11] MEDS: ASPIRIN 81 MG TABLET EC PO SCH (05:49)
[2019-08-11] MEDS: INSULIN LISPRO 100 UNITS/ML, PEN SQ-INSULIN SCH ×4 (07:00→23:14)
[2019-08-11 07:25] VITALS: BP 137/67
[2019-08-11] MEDS: CALCIUM/VITAMIN D3 250-125 TABLET PO SCH ×3 (08:23→22:45)
[2019-08-11] MEDS: LISINOPRIL 40 MG TABLET PO SCH (08:23)
[2019-08-11] MEDS: LACTOBACILLUS CHEW TABLET PO SCH ×4 (08:23→22:45)
[2019-08-11] MEDS: BENZONATATE 100 MG CAPSULE PO SCH ×4 (08:23→22:45)
[2019-08-11] MEDS: metFORMIN 500 MG TABLET PO SCH ×3 (08:23→22:45)
[2019-08-11] MEDS: FUROSEMIDE 20 MG/2 ML IV SCH ×2 (08:23→22:45)
[2019-08-11] MEDS: ENOXAPARIN 60 MG/0.6 ML SQ SCH ×2 (08:24→22:45)
[2019-08-11] MEDS: POTASSIUM CHLORIDE 20 MEQ TAB.ER.PRT PO SCH ×2 (08:26→17:10)
[2019-08-11 14:32] VITALS: BP 113/70
[2019-08-11 17:48] VITALS: BP 117/71
[2019-08-11 19:57] VITALS: BP 152/82
[2019-08-11] MEDS: MELATONIN 5 MG TABLET PO SCH ×2 (21:00→22:45)
[2019-08-11] MEDS: ATORVASTATIN 40 MG TABLET PO SCH ×2 (21:00→22:45)
[2019-08-12 01:27] VITALS: BP 111/64
[2019-08-12] MEDS: ASPIRIN 81 MG TABLET EC PO SCH (06:00)
[2019-08-12] MEDS: INSULIN LISPRO 100 UNITS/ML, PEN SQ-INSULIN SCH ×4 (07:00→20:38)
[2019-08-12 08:00] VITALS: BP 126/69
[2019-08-12] MEDS: LACTOBACILLUS CHEW TABLET PO SCH ×3 (09:00→20:59)
[2019-08-12] MEDS: CALCIUM/VITAMIN D3 250-125 TABLET PO SCH ×2 (09:00→21:00)
[2019-08-12] MEDS: BENZONATATE 100 MG CAPSULE PO SCH ×3 (09:00→21:00)
[2019-08-12] MEDS: FUROSEMIDE 20 MG/2 ML IV SCH ×2 (09:58→20:41)
[2019-08-12] MEDS: ENOXAPARIN 60 MG/0.6 ML SQ SCH ×2 (09:58→20:45)
[2019-08-12] MEDS: metFORMIN 500 MG TABLET PO SCH ×2 (09:58→20:56)
[2019-08-12] MEDS: LISINOPRIL 40 MG TABLET PO SCH (09:58)
[2019-08-12 13:45] VITALS: BP 129/65
[2019-08-12 19:31] VITALS: BP 118/72
[2019-08-12] MEDS: ONDANSETRON 2MG/ML, 2ML IVPush PRN (20:38)
[2019-08-12] MEDS: MELATONIN 5 MG TABLET PO SCH (20:58)
[2019-08-12] MEDS: ATORVASTATIN 40 MG TABLET PO SCH (20:59)
[2019-08-13 01:06] VITALS: BP 122/64
[2019-08-13] MEDS: ASPIRIN 81 MG TABLET EC PO SCH (05:15)
[2019-08-13] MEDS: INSULIN LISPRO 100 UNITS/ML, PEN SQ-INSULIN SCH ×4 (07:00→21:00)
[2019-08-13 08:33] VITALS: BP 112/67
[2019-08-13 08:44] LABS: MEAN CORPUSCULAR HEMOGLOBIN 28.7 pg (27.0-34.8); MEAN CORPUSCULAR HGB CONC 31.9 g/dL (32.4-35.8); MEAN PLATELET VOLUME 8.4 fL (7.4-10.4); PLATELET COUNT 379 x10^3/uL (130-400); RED BLOOD COUNT 4.21 x10^6/uL (3.82-5.3); RED CELL DISTRIBUTION WIDTH 15.9 % (9.6-15.2)
[2019-08-13] MEDS: metFORMIN 500 MG TABLET PO SCH (08:53)
[2019-08-13] MEDS: LISINOPRIL 40 MG TABLET PO SCH (08:53)
[2019-08-13] MEDS: BENZONATATE 100 MG CAPSULE PO SCH ×3 (08:53→21:00)
[2019-08-13] MEDS: CALCIUM/VITAMIN D3 250-125 TABLET PO SCH ×2 (08:53→21:00)
[2019-08-13] MEDS: FUROSEMIDE 20 MG/2 ML IV SCH ×2 (08:54→21:00)
[2019-08-13 09:07] LABS: BASOPHILS # (AUTO) 0.02 x10^3/uL (0-0.1); BASOPHILS % (AUTO) 0 % (0-1); EOSINOPHILS # (AUTO) 0.18 x10^3/uL (0-0.4); EOSINOPHILS % (AUTO) 1 % (1-7); LYMPHOCYTES # (AUTO) 1.73 x10^3/uL (1-3.4); LYMPHOCYTES % (AUTO) 10 % (22-44); MD SCAN; MONOCYTES # (AUTO) 1.22 x10^3/uL (0.2-0.8); MONOCYTES % (AUTO) 7 % (2-9); NEUTROPHILS # (AUTO) 14.47 x10^3/uL (1.8-6.8); NEUTROPHILS % (AUTO) 82 % (42-75)
[2019-08-13] MEDS ORDERED: PIPERACILLIN/TAZO/PMX 4.5GM 100 ML IV SCH (09:30)
[2019-08-13] MEDS ORDERED: maalox/diphenh/lido/sucralfate 5 ML PO PRN (10:00)
[2019-08-13 11:22] LABS: ALBUMIN 1.8 g/dL (3.4-5.0); ANION GAP 8 mmol/L (5-15); CALCIUM 9.4 mg/dL (8.5-10.1); CHLORIDE 100 mmol/L (98-107)
[2019-08-13 11:31] LABS: ALANINE AMINOTRANSFERASE 21 U/L (12-78); ALKALINE PHOSPHATASE 57 U/L (45-117); BILIRUBIN,TOTAL 1.1 mg/dL (0.2-1.0); CREATININE 1.08 mg/dL (0.55-1.02); TOTAL PROTEIN 6.6 g/dL (6.4-8.2)
[2019-08-13] MEDS: PIPERACILLIN/TAZO/PMX 4.5GM 100 ML IV SCH ×2 (12:45→15:30)
[2019-08-13 14:55] VITALS: BP 101/67
[2019-08-13 19:23] LABS: MICROSCOPIC INDICATED
[2019-08-13] MEDS: ATORVASTATIN 40 MG TABLET PO SCH (21:00)
[2019-08-13] MEDS ORDERED: DOXYCYCLINE 100MG TABLET PO SCH (21:00)
[2019-08-13 21:18] VITALS: BP 92/54
[2019-08-13] MEDS: LINEZOLID 600 MG TABLET PO SCH (21:27)
[2019-08-13] MEDS: maalox/diphenh/lido/sucralfate 5 ML PO PRN (21:31)
[2019-08-13] MEDS: PIPERACILLIN/TAZO/PMX 3.375GM 50 ML IV SCH (21:42)
[2019-08-14 02:03] VITALS: BP 95/61
[2019-08-14] MEDS: PIPERACILLIN/TAZO/PMX 3.375GM 50 ML IV SCH ×4 (03:57→22:18)
[2019-08-14] MEDS: ASPIRIN 81 MG TABLET EC PO SCH (05:19)
[2019-08-14 05:28] LABS: BASOPHILS # (AUTO) 0.06 x10^3/uL (0-0.1); BASOPHILS % (AUTO) 0 % (0-1); EOSINOPHILS # (AUTO) 0.21 x10^3/uL (0-0.4); EOSINOPHILS % (AUTO) 1 % (1-7); LYMPHOCYTES # (AUTO) 1.25 x10^3/uL (1-3.4); LYMPHOCYTES % (AUTO) 8 % (22-44); MD NO; MEAN CORPUSCULAR HEMOGLOBIN 28.8 pg (27.0-34.8); MEAN CORPUSCULAR HGB CONC 32.5 g/dL (32.4-35.8); MEAN PLATELET VOLUME 8.4 fL (7.4-10.4); MONOCYTES # (AUTO) 0.99 x10^3/uL (0.2-0.8); MONOCYTES % (AUTO) 7 % (2-9); NEUTROPHILS # (AUTO) 12.53 x10^3/uL (1.8-6.8); NEUTROPHILS % (AUTO) 83 % (42-75); PLATELET COUNT 280 x10^3/uL (130-400); RED BLOOD COUNT 3.75 x10^6/uL (3.82-5.3); RED CELL DISTRIBUTION WIDTH 15.7 % (9.6-15.2)
[2019-08-14 05:36] LABS: CHLORIDE 100 mmol/L (98-107)
[2019-08-14 05:44] LABS: ALANINE AMINOTRANSFERASE 20 U/L (12-78); ALBUMIN 1.6 g/dL (3.4-5.0); ALKALINE PHOSPHATASE 52 U/L (45-117); ANION GAP 8 mmol/L (5-15); BILIRUBIN,TOTAL 1.3 mg/dL (0.2-1.0); CALCIUM 8.6 mg/dL (8.5-10.1); CREATININE 1.34 mg/dL (0.55-1.02); TOTAL PROTEIN 6.2 g/dL (6.4-8.2)
[2019-08-14 09:00] VITALS: BP 97/61
[2019-08-14] MEDS: INSULIN LISPRO 100 UNITS/ML, PEN SQ-INSULIN SCH ×4 (09:03→21:00)
[2019-08-14] MEDS: FUROSEMIDE 20 MG/2 ML IV SCH ×2 (09:03→22:18)
[2019-08-14] MEDS: LINEZOLID 600 MG TABLET PO SCH ×2 (09:04→22:17)
[2019-08-14] MEDS: CALCIUM/VITAMIN D3 250-125 TABLET PO SCH ×2 (09:04→22:17)
[2019-08-14] MEDS: LISINOPRIL 40 MG TABLET PO SCH ×2 (09:04→09:09)
[2019-08-14] MEDS: BENZONATATE 100 MG CAPSULE PO SCH ×3 (09:04→21:00)
[2019-08-14 13:23] VITALS: BP 102/67
--- NOTE | 2019-08-14 17:54 | NUR ---
Do not anticipate need for MFT intervention at the time of discharge. Addendum: 08/14/19 at 2214 by Paradise REED Amended: Links added.
[2019-08-14 19:04] VITALS: BP 131/59
[2019-08-14] MEDS: ATORVASTATIN 40 MG TABLET PO SCH (22:17)
[2019-08-15 01:02] VITALS: BP 125/63
[2019-08-15] MEDS: PIPERACILLIN/TAZO/PMX 3.375GM 50 ML IV SCH ×4 (03:46→21:33)
[2019-08-15] MEDS: ASPIRIN 81 MG TABLET EC PO SCH (06:22)
[2019-08-15 08:37] VITALS: BP 102/64
[2019-08-15] MEDS: BENZONATATE 100 MG CAPSULE PO SCH ×4 (08:43→21:33)
[2019-08-15] MEDS: LISINOPRIL 40 MG TABLET PO SCH ×3 (08:43→08:57)
[2019-08-15] MEDS: CALCIUM/VITAMIN D3 250-125 TABLET PO SCH ×3 (08:43→21:33)
[2019-08-15] MEDS: maalox/diphenh/lido/sucralfate 5 ML PO PRN (08:44)
[2019-08-15] MEDS: LINEZOLID 600 MG TABLET PO SCH ×3 (08:44→21:33)
[2019-08-15] MEDS: FUROSEMIDE 20 MG/2 ML IV SCH (08:45)
[2019-08-15] MEDS: INSULIN LISPRO 100 UNITS/ML, PEN SQ-INSULIN SCH ×4 (08:57→21:00)
[2019-08-15 12:00] VITALS: BP 86/48
[2019-08-15] MEDS ORDERED: LACTATED RINGERS 1,000 ML IVBOLUS ONE (12:30)
[2019-08-15 14:00] VITALS: BP 100/62
[2019-08-15] MEDS ORDERED: LACTATED RINGERS 1,000 ML IV SCH (17:30)
[2019-08-15] MEDS: ATORVASTATIN 40 MG TABLET PO SCH ×2 (21:00→21:33)
[2019-08-15] MEDS: ACYCLOVIR 400 MG TABLET PO SCH ×2 (21:00→21:33)
[2019-08-15 21:34] VITALS: BP 86/53
[2019-08-15 23:30] VITALS: BP 110/61
[2019-08-16 00:43] VITALS: BP 91/62
[2019-08-16] MEDS ORDERED: ACETAMINOPHEN 650 MG SUPP PR PRN (01:00)
[2019-08-16] MEDS ORDERED: LINEZOLID PMX 600MG/300ML 300 ML IV ONE (01:00)
[2019-08-16] MEDS: PIPERACILLIN/TAZO/PMX 3.375GM 50 ML IV SCH ×3 (03:18→16:34)
[2019-08-16 03:58] LABS: CLOSTRIDIUM DIFFICILE ANTIGEN NEGATIVE; CLOSTRIDIUM DIFFICILE TOXIN NEGATIVE (Negative)
[2019-08-16 05:13] LABS: ALANINE AMINOTRANSFERASE 18 U/L (12-78); ALBUMIN 1.3 g/dL (3.4-5.0); ANION GAP 9 mmol/L (5-15); CALCIUM 8.2 mg/dL (8.5-10.1); CHLORIDE 103 mmol/L (98-107); CREATININE 2.94 mg/dL (0.55-1.02)
[2019-08-16 05:15] LABS: ALKALINE PHOSPHATASE 59 U/L (45-117); TOTAL PROTEIN 5.8 g/dL (6.4-8.2)
[2019-08-16 05:17] LABS: MEAN CORPUSCULAR HGB CONC 32.6 g/dL (32.4-35.8); MEAN PLATELET VOLUME 8.9 fL (7.4-10.4); PLATELET COUNT 236 x10^3/uL (130-400); RED BLOOD COUNT 3.36 x10^6/uL (3.82-5.3); RED CELL DISTRIBUTION WIDTH 16.3 % (9.6-15.2)
[2019-08-16 05:42] LABS: BASOPHILS # (AUTO) 0.01 x10^3/uL (0-0.1); BASOPHILS % (AUTO) 0 % (0-1); EOSINOPHILS # (AUTO) 0.08 x10^3/uL (0-0.4); EOSINOPHILS % (AUTO) 0 % (1-7); LYMPHOCYTES # (AUTO) 1.66 x10^3/uL (1-3.4); LYMPHOCYTES % (AUTO) 8 % (22-44); MD SCAN; MONOCYTES # (AUTO) 1.13 x10^3/uL (0.2-0.8); MONOCYTES % (AUTO) 6 % (2-9); NEUTROPHILS # (AUTO) 17.42 x10^3/uL (1.8-6.8); NEUTROPHILS % (AUTO) 86 % (42-75)
[2019-08-16] MEDS: ASPIRIN 81 MG TABLET EC PO SCH (06:00)
[2019-08-16] MEDS: ACYCLOVIR 400 MG TABLET PO SCH ×3 (06:00→08:21)
[2019-08-16] MEDS: CALCIUM/VITAMIN D3 250-125 TABLET PO SCH ×3 (08:09→20:34)
[2019-08-16] MEDS: ACETAMINOPHEN 325 MG TABLET PO PRN (08:09)
[2019-08-16] MEDS: BENZONATATE 100 MG CAPSULE PO SCH ×4 (08:09→20:35)
[2019-08-16] MEDS: INSULIN LISPRO 100 UNITS/ML, PEN SQ-INSULIN SCH ×4 (08:13→20:34)
[2019-08-16 08:18] VITALS: BP 110/66
[2019-08-16 10:30] VITALS: BP 74/30
[2019-08-16 11:18] VITALS: BP 127/53
[2019-08-16] MEDS ORDERED: LINEZOLID 600 MG TABLET PO SCH (13:00)
[2019-08-16 13:03] LABS: MICROSCOPIC INDICATED
[2019-08-16 14:59] VITALS: BP 110/57
[2019-08-16] MEDS: LACTATED RINGERS 1,000 ML IV SCH ×2 (16:34→20:34)
[2019-08-16] MEDS: MEROPENEM 500 MG in SODIUM CHLORIDE 0.9% 100 ML IV SCH (19:36)
[2019-08-16 19:39] VITALS: BP 94/55
[2019-08-16] MEDS: ATORVASTATIN 40 MG TABLET PO SCH (20:34)
[2019-08-17] MEDS ORDERED: DEXTROSE 50%, 50ML SYRINGE IVPush PRN (01:00)
[2019-08-17] MEDS ORDERED: DEXTROSE 4 GM TAB.CHEW PO PRN (01:00)
[2019-08-17] MEDS ORDERED: GLUCAGON 1 MG IM PRN (01:00)
[2019-08-17 01:24] VITALS: BP 130/79
[2019-08-17] MEDS: ASPIRIN 81 MG TABLET EC PO SCH (05:14)
[2019-08-17] MEDS: LACTATED RINGERS 1,000 ML IV SCH (05:14)
[2019-08-17] MEDS: MEROPENEM 500 MG in SODIUM CHLORIDE 0.9% 100 ML IV SCH ×2 (06:44→18:31)
[2019-08-17 06:49] LABS: MEAN CORPUSCULAR HEMOGLOBIN 28.9 pg (27.0-34.8); MEAN CORPUSCULAR HGB CONC 32.4 g/dL (32.4-35.8); MEAN PLATELET VOLUME 8.9 fL (7.4-10.4); PLATELET COUNT 202 x10^3/uL (130-400); RED BLOOD COUNT 2.97 x10^6/uL (3.82-5.3); RED CELL DISTRIBUTION WIDTH 15.9 % (9.6-15.2)
[2019-08-17 06:53] LABS: ALBUMIN 1.1 g/dL (3.4-5.0); ANION GAP 8 mmol/L (5-15); CALCIUM 7.8 mg/dL (8.5-10.1); CHLORIDE 108 mmol/L (98-107)
[2019-08-17 06:56] LABS: ALANINE AMINOTRANSFERASE 25 U/L (12-78); ALKALINE PHOSPHATASE 82 U/L (45-117); BILIRUBIN,TOTAL 0.7 mg/dL (0.2-1.0); CREATININE 3.89 mg/dL (0.55-1.02); TOTAL PROTEIN 5.3 g/dL (6.4-8.2)
[2019-08-17 07:00] VITALS: BP 73/45
[2019-08-17] MEDS: INSULIN LISPRO 100 UNITS/ML, PEN SQ-INSULIN SCH ×4 (07:00→20:57)
[2019-08-17 07:16] VITALS: BP 115/73
[2019-08-17 07:21] LABS: BASOPHILS # (AUTO) 0.02 x10^3/uL (0-0.1); BASOPHILS % (AUTO) 0 % (0-1); EOSINOPHILS # (AUTO) 0.13 x10^3/uL (0-0.4); EOSINOPHILS % (AUTO) 1 % (1-7); LYMPHOCYTES # (AUTO) 0.87 x10^3/uL (1-3.4); LYMPHOCYTES % (AUTO) 6 % (22-44); MD SCAN; MONOCYTES # (AUTO) 0.53 x10^3/uL (0.2-0.8); MONOCYTES % (AUTO) 3 % (2-9); NEUTROPHILS # (AUTO) 14.37 x10^3/uL (1.8-6.8); NEUTROPHILS % (AUTO) 90 % (42-75)
[2019-08-17] MEDS ORDERED: ALBUMIN HUMAN 25% 100 ML IV ONE (08:00)
[2019-08-17] MEDS: CALCIUM/VITAMIN D3 250-125 TABLET PO SCH ×2 (09:00→20:54)
[2019-08-17] MEDS: BENZONATATE 100 MG CAPSULE PO SCH ×3 (09:00→20:54)
[2019-08-17] MEDS: SODIUM CHLORIDE FLUSH 10ML SYR IVF SCH ×2 (09:00→20:54)
[2019-08-17] MEDS: POTASSIUM CHLORIDE 20 MEQ in LACTATED RINGERS 1,000 ML IV SCH ×2 (10:01→18:31)
[2019-08-17 12:43] VITALS: BP 96/62
[2019-08-17] MEDS: HYDROCORTISONE 100 MG INJ. IV SCH ×2 (15:51→23:44)
[2019-08-17] MEDS ORDERED: HEPARIN 5,000 UNITS/ML, 1ML IV PRN (18:00)
[2019-08-17] MEDS ORDERED: HEPARIN 5,000 UNITS/ML, 1ML IV ONE (18:00)
[2019-08-17] MEDS: ATORVASTATIN 40 MG TABLET PO SCH (20:54)
[2019-08-17 21:25] VITALS: BP 97/60
[2019-08-17] MEDS: HEPARIN 25,000 UNITS/250ML PMX 250 ML IV PRN (22:54)
[2019-08-18] VITALS (9 sets, daily range): BP systolic 90–127; BP diastolic 50–71
[2019-08-18] MEDS ORDERED: FUROSEMIDE 40 MG/4 ML IV ONE (02:00)
[2019-08-18 05:42] LABS: MEAN CORPUSCULAR HEMOGLOBIN 28.7 pg (27.0-34.8); MEAN CORPUSCULAR HGB CONC 31.7 g/dL (32.4-35.8); MEAN PLATELET VOLUME 8.7 fL (7.4-10.4); PLATELET COUNT 188 x10^3/uL (130-400); RED CELL DISTRIBUTION WIDTH 16.5 % (9.6-15.2)
[2019-08-18 05:46] LABS: CHLORIDE 109 mmol/L (98-107)
[2019-08-18 05:53] LABS: ALANINE AMINOTRANSFERASE 39 U/L (12-78); ALBUMIN 1.4 g/dL (3.4-5.0); ALKALINE PHOSPHATASE 73 U/L (45-117); ANION GAP 18 mmol/L (5-15); BILIRUBIN,TOTAL 0.9 mg/dL (0.2-1.0); CALCIUM 7.4 mg/dL (8.5-10.1); CREATININE 4.16 mg/dL (0.55-1.02); TOTAL PROTEIN 5.6 g/dL (6.4-8.2)
[2019-08-18] MEDS: ASPIRIN 81 MG TABLET EC PO SCH ×2 (06:00→06:17)
[2019-08-18 06:07] LABS: MD YES
[2019-08-18 06:10] LABS: <PLATELET ESTIMATE> ADEQUATE; <PLT MORPHOLOGY> NORMAL PLT MORPH; <RBC MORPHOLOGY> NORMAL; BANDS%(MANUAL) 2 % (0-7); LYMPHS% (MANUAL) 3 % (22-44); MONOS% (MANUAL) 2 % (2-9); SEG#(MANUAL) 18.69 x10^3/uL (1.8-6.8); SEGS% (MANUAL) 93 % (42-75)
[2019-08-18] MEDS: MEROPENEM 500 MG in SODIUM CHLORIDE 0.9% 100 ML IV SCH ×2 (06:17→18:19)
[2019-08-18] MEDS: HYDROCORTISONE 100 MG INJ. IV SCH ×3 (06:17→23:57)
[2019-08-18] MEDS: POTASSIUM CHLORIDE 20 MEQ in LACTATED RINGERS 1,000 ML IV SCH (06:17)
[2019-08-18] MEDS: INSULIN LISPRO 100 UNITS/ML, PEN SQ-INSULIN SCH ×4 (06:19→19:51)
[2019-08-18] MEDS: CALCIUM/VITAMIN D3 250-125 TABLET PO SCH ×3 (07:52→21:00)
[2019-08-18] MEDS: SODIUM CHLORIDE FLUSH 10ML SYR IVF SCH ×2 (07:52→21:29)
[2019-08-18] MEDS: BENZONATATE 100 MG CAPSULE PO SCH ×4 (07:52→21:00)
[2019-08-18] MEDS ORDERED: ALBUMIN HUMAN 25% 100 ML IV ONE (09:00)
[2019-08-18] MEDS ORDERED: INSULIN LISPRO 100 UNIT/ML, 3ML VIAL SQ-INSULIN ONE (21:00)
[2019-08-18] MEDS: ATORVASTATIN 40 MG TABLET PO SCH (21:00)
[2019-08-19 00:02] VITALS: BP 101/59
[2019-08-19] MEDS: POTASSIUM CHLORIDE 20 MEQ in LACTATED RINGERS 1,000 ML IV SCH (02:26)
[2019-08-19] MEDS: HEPARIN 25,000 UNITS/250ML PMX 250 ML IV PRN (05:57)
[2019-08-19] MEDS: ASPIRIN 81 MG TABLET EC PO SCH (05:59)
[2019-08-19] MEDS: MEROPENEM 500 MG in SODIUM CHLORIDE 0.9% 100 ML IV SCH (05:59)
[2019-08-19] MEDS: INSULIN LISPRO 100 UNITS/ML, PEN SQ-INSULIN SCH (07:00)
[2019-08-19 08:11] LABS: MEAN CORPUSCULAR HEMOGLOBIN 29.5 pg (27.0-34.8); MEAN CORPUSCULAR HGB CONC 32.2 g/dL (32.4-35.8); MEAN PLATELET VOLUME 9.1 fL (7.4-10.4); PLATELET COUNT 175 x10^3/uL (130-400); RED CELL DISTRIBUTION WIDTH 16.2 % (9.6-15.2)
[2019-08-19 08:21] LABS: ALBUMIN 1.5 g/dL (3.4-5.0); ANION GAP 22 mmol/L (5-15); CALCIUM 7.5 mg/dL (8.5-10.1); CHLORIDE 110 mmol/L (98-107)
[2019-08-19 08:31] LABS: ALANINE AMINOTRANSFERASE 32 U/L (12-78); ALKALINE PHOSPHATASE 81 U/L (45-117); BILIRUBIN,TOTAL 0.7 mg/dL (0.2-1.0); CREATININE 4.66 mg/dL (0.55-1.02); TOTAL PROTEIN 5.8 g/dL (6.4-8.2)
[2019-08-19 08:32] LABS: C-REACTIVE PROTEIN, QUANT > 19.00 mg/dL (0.02-0.49)
[2019-08-19 08:35] LABS: BASOPHILS # (AUTO) 0.01 x10^3/uL (0-0.1); BASOPHILS % (AUTO) 0 % (0-1); EOSINOPHILS % (AUTO) 0 % (1-7); LYMPHOCYTES # (AUTO) 0.71 x10^3/uL (1-3.4); LYMPHOCYTES % (AUTO) 4 % (22-44); MD SCAN; MONOCYTES # (AUTO) 0.21 x10^3/uL (0.2-0.8); MONOCYTES % (AUTO) 1 % (2-9); NEUTROPHILS # (AUTO) 17.05 x10^3/uL (1.8-6.8); NEUTROPHILS % (AUTO) 95 % (42-75)
[2019-08-19] MEDS: BENZONATATE 100 MG CAPSULE PO SCH (09:00)
[2019-08-19] MEDS: CALCIUM/VITAMIN D3 250-125 TABLET PO SCH (09:00)
[2019-08-19] MEDS: HYDROCORTISONE 100 MG INJ. IV SCH (09:52)
[2019-08-19] MEDS: SODIUM CHLORIDE FLUSH 10ML SYR IVF SCH (09:52)
[2019-08-19] MEDS ORDERED: ATROPINE OPHTH SOLN 1%, 5ML BC PRN (10:30)
[2019-08-19] MEDS ORDERED: ACETAMINOPHEN 650 MG SUPP PR PRN (10:30)
[2019-08-19] MEDS ORDERED: ONDANSETRON 2MG/ML, 2ML IVPush PRN (10:30)
[2019-08-20] MEDS ORDERED: SCOPOLAMINE 1MG PATCH TD SCH (14:00)
[2019-08-20] MEDS: LORazepam 2 MG/ML, 1ML IVPush PRN ×3 (14:40→22:08)
[2019-08-21] MEDS: LORazepam 2 MG/ML, 1ML IVPush PRN ×2 (05:19→19:46)
== END 2019-08-22 15:18 | disposition expired | DRG 177 ==
LOC: ED 18:19 → EDIP 19:46 → 4EST 21:09 → 4WST 07-30 05:15 → OBSVTOIN 07-30 11:11 → 4NW 07-31 20:36 → ICU 08-04 12:55 → 4NW 08-11 16:49
PROVIDERS: ADMIT Internal Medicine; ATTEND Hospitalist
PROC: 0T9B30Z Drainage of Bladder with Drainage Device, Percutaneous Approach (ICD-10-PCS; 2019-07-29)
PROC: 30233N1 Transfusion of Nonautologous Red Blood Cells into Peripheral Vein, Percutaneous Approach (ICD-10-PCS; principal; 2019-08-18)
DX: U07.1 COVID-19 (principal); J96.01 Acute respiratory failure with hypoxia; N17.0 Acute kidney failure with tubular necrosis; G92 Toxic encephalopathy; J12.89 Other viral pneumonia; E43 Unspecified severe protein-calorie malnutrition; B00.2 Herpesviral gingivostomatitis and pharyngotonsillitis; D68.59 Other primary thrombophilia; E27.40 Unspecified adrenocortical insufficiency; E87.1 Hypo-osmolality and hyponatremia; L03.90 Cellulitis, unspecified; I10 Essential (primary) hypertension; E78.5 Hyperlipidemia, unspecified; B37.9 Candidiasis, unspecified; E11.649 Type 2 diabetes mellitus with hypoglycemia without coma; E11.65 Type 2 diabetes mellitus with hyperglycemia; E78.00 Pure hypercholesterolemia, unspecified; E83.51 Hypocalcemia; E86.0 Dehydration; H91.90 Unspecified hearing loss, unspecified ear; M19.011 Primary osteoarthritis, right shoulder; M77.9 Enthesopathy, unspecified; S40.011A Contusion of right shoulder, initial encounter; Z51.5 Encounter for palliative care; M54.30 Sciatica, unspecified side; S20.211A Contusion of right front wall of thorax, initial encounter; W18.39XA Other fall on same level, initial encounter; Y93.89 Activity, other specified; Y92.098 Other place in other non-institutional residence as the place of occurrence of the external cause; Z79.4 Long term (current) use of insulin; Y99.8 Other external cause status; Z79.82 Long term (current) use of aspirin; Z79.899 Other long term (current) drug therapy; Z68.24 Body mass index [BMI] 24.0-24.9, adult; Z79.84 Long term (current) use of oral hypoglycemic drugs
CPT/HCPCS: 36415; 36600; 70450; 70496; 70498; 70551; 71045; 76770; 80048; 80053; 81001; 82330; 82533; 82728; 82803; 82947; 82962; 83036; 83605; 83615; 83735; 83880; 84100; 84132; 84145; 84443; 84484; 85025; 85379; 85520; 85651; 86140; 86850; 86900; 86923; 87040; 87081; 87086; 87106; 87324; 87635; 93005; 93306; 95816; 96365; 96372; 99285; G0378; J0696; J1644; J1650; J1940; J2020; J2185; J2270; J2405; J2543; J3480; J7509; P9047; Q9967; J0360; J1720; J1815; J2060; J2920; J3475; J7030; J7050; J7120; P9016; U0001-CS